=== PATIENT | female | born 1955 | race Caucasian/White ===

== ENCOUNTER 2016-07-29 14:43 | Outpatient (CLI) | payer BC | END 2016-07-29 14:44 | disposition home or self-care (01) | DX: R05 Cough (principal) ==

== ENCOUNTER 2016-11-09 07:33 | Outpatient (CLI) | payer BC ==
[2016-11-09 10:49] LABS: BASOPHILS # (AUTO) 0.1 10^3/uL (0.0-0.1); BASOPHILS % (AUTO) 1.6 %; EOSINOPHILS # (AUTO) 0.3 10^3/uL (0.0-0.7); EOSINOPHILS % (AUTO) 3.3 %; HCT - HEMATOCRIT 39.1 % (37.0-47.0); HGB - HEMOGLOBIN 13.5 g/dL (12.0-16.0); LYMPHOCYTES # (AUTO) 2.4 10^3/uL (1.5-3.5); LYMPHOCYTES % (AUTO) 30.7 %; MEAN CORPUSCULAR HEMOGLOBIN 30.2 pg (27.0-31.0); MEAN CORPUSCULAR HGB CONC 34.6 g/dL (32.0-36.0); MEAN CORPUSCULAR VOLUME 87.1 fL (81.0-99.0); MONOCYTES # (AUTO) 0.5 10^3/uL (0.0-1.0); MONOCYTES % (AUTO) 6.9 %; NEUTROPHILS # (AUTO) 4.4 10^3/uL (1.5-6.6); NEUTROPHILS % (AUTO) 57.5 %; RED BLOOD COUNT 4.49 10^6/uL (4.20-5.40); RED CELL DISTRIBUTION WIDTH 14.8 % (12.0-15.0); UNCORRECTED WHITE BLOOD COUNT 7.7 x10^3/uL; WHITE BLOOD COUNT 7.7 x10^3/uL (4.8-10.8)
[2016-11-09 11:10] LABS: ALBUMIN/GLOBULIN RATIO 1.4 (1.0-2.2); BILIRUBIN,TOTAL 0.7 mg/dL (0.2-1.0); BUN - BLOOD UREA NITROGEN 17 mg/dL (6-20); CALCIUM 9.1 mg/dL (8.5-10.3); CARBON DIOXIDE - CO2 29 mmol/L (21-32); CHLORIDE 103 mmol/L (101-111); CHOL/HDL RATIO 3.7 (<4.4); CHOLESTEROL 183 mg/dL; CREATININE 0.9 mg/dL (0.4-1.0); GFR - MDRD 64 (>89); GLUCOSE 97 mg/dL (70-100); HDL CHOLESTEROL 49 mg/dL; LDL/HDL RATIO 2.3 (<4.4); SODIUM 139 mmol/L (135-145); TOTAL PROTEIN 7.1 g/dL (6.7-8.2); TRIGLYCERIDES 113 mg/dL; VLDL CHOLESTEROL 23 mg/dL
[2016-11-10 08:03] LABS: TEST RESULT REPORT (())
== END 2016-11-09 07:34 | disposition home or self-care (01) ==
LOC: LAB.F 07:33
PROVIDERS: ATTEND Physician Assistant Medical
DX: Z00.00 Encounter for general adult medical examination without abnormal findings (principal); E55.9 Vitamin D deficiency, unspecified; E78.2 Mixed hyperlipidemia; Z79.899 Other long term (current) drug therapy
CPT/HCPCS: 36415; 80053; 80061; 81599; 82306; 84443; 85025

== ENCOUNTER 2016-11-25 10:06 | Outpatient (CLI) | payer BC ==
--- NOTE | 2016-11-26 14:21 | Mammography Report ---
DIGITAL SCREENING MAMMOGRAM: 11/25/2016 CLINICAL INDICATION: A 60-year-old with history of late childbearing, history of bilateral reduction, for screening. COMPARISON: 11/2015, 10/2014, 09/2013, 07/2012, 07/2011, 04/2010, 03/2009, 12/2007, 10/2006. TECHNIQUE: Routine CC and MLO projections were obtained of the breasts. Bilateral laterally exaggera armando craniocaudal views. FINDINGS: The breasts demonstrate scattered fibroglandular densities bilaterally. Coarse and punctat e, typically benign calcifications are present. In the left outer central breast, there is a possible developing density. Further evaluation with spot compression views and possible ultrasound is recomm ended. No mammographically suspicious findings are appreciated in the right breast. IMPRESSION: INCOMPLETE EXAMINATION. RECOMMENDATION: ADDITIONAL EVALUATION OF THE LEFT BREAST ABOVE. BIRADS CATEGORY 0-INCOMPLETE. STANDARD QUALIFYING STATEMENTS 1. This examination was reviewed with the aid of Computer-Aided Detection (CAD). 2. A negative or benign imaging report should not delay biopsy if clinically suspicious findings are present. Consider surgical consultation if warranted. More than 5% of cancers are not identified by i maging. 3. Dense breasts may obscure an underlying neoplasm. JOB #: [id number] EXT JOB #:[id number]
== END 2016-11-25 10:07 | disposition home or self-care (01) ==
LOC: DI.S 10:06
PROVIDERS: ATTEND Physician Assistant Medical
DX: Z12.31 Encounter for screening mammogram for malignant neoplasm of breast (principal); R92.8 Other abnormal and inconclusive findings on diagnostic imaging of breast
CPT/HCPCS: 77067

== ENCOUNTER 2016-12-10 10:25 | Outpatient (CLI) | payer BC ==
--- NOTE | 2016-12-10 15:31 | Mammography Report ---
DIGITAL DIAGNOSTIC LEFT MAMMOGRAM: 12/10/2016 CLINICAL INDICATION: Possible nodule on screening. TECHNIQUE: Left true lateral and spot compression views. COMPARISON: 11/25/2016, 11/13/2015, 10/15/2014, 09/11/2013, 07/14/2012, 08/09/2011, 04/15/2010, 04/01, 01/08/2008, 11/09/2006. FINDINGS: The left breast again demonstrates scattered fibroglandular densities. The density in ques tion dissipates evenly on additional compression. No underlying mass lesion or architectural distorti on is identified. IMPRESSION: NEGATIVE EXAMINATION. RECOMMENDATION: ROUTINE ANNUAL SCREENING UNLESS OTHERWISE CLINICALLY INDICATED. BIRADS CATEGORY 2-BENIGN FINDINGS. STANDARD QUALIFYING STATEMENTS 1. This examination was reviewed with the aid of Computer-Aided Detection (CAD). 2. A negative or benign imaging report should not delay biopsy if clinically suspicious findings are present. Consider surgical consultation if warranted. More than 5% of cancers are not identified by i maging. 3. Dense breasts may obscure an underlying neoplasm. JOB #: [id number] EXT JOB #:[id number]
== END 2016-12-10 10:26 | disposition home or self-care (01) ==
LOC: DI 10:25
PROVIDERS: ATTEND Physician Assistant Medical
DX: R92.8 Other abnormal and inconclusive findings on diagnostic imaging of breast (principal)

== ENCOUNTER 2017-03-07 08:49 | Day surgery (SDC) | payer BC ==
[2017-03-07] MEDS ORDERED: LACTATED RINGERS 1,000 ML IV ONE (09:30)
[2017-03-07] MEDS ORDERED: fentaNYL 100 MCG/2 ML VIAL IVP ONE (11:15)
[2017-03-07] MEDS ORDERED: MIDAZOLAM 2 MG/2 ML VIAL IVP ONE (11:15)
[2017-03-07 12:09] VITALS: BP 124/78
== END 2017-03-07 08:50 | disposition home or self-care (01) ==
LOC: SDS 08:49
PROVIDERS: ATTEND Surgery
PROC: 0DJD8ZZ Inspection of Lower Intestinal Tract, Via Natural or Artificial Opening Endoscopic (ICD-10-PCS; principal; 2017-03-07 10:15)
DX: Z12.11 Encounter for screening for malignant neoplasm of colon (principal); K57.30 Diverticulosis of large intestine without perforation or abscess without bleeding; K64.8 Other hemorrhoids; Z79.82 Long term (current) use of aspirin; I10 Essential (primary) hypertension; E66.9 Obesity, unspecified; Z68.36 Body mass index [BMI] 36.0-36.9, adult
CPT/HCPCS: 45378; J7120

== ENCOUNTER 2017-11-25 08:10 | Outpatient (CLI) | payer BC ==
[2017-11-25 11:17] LABS: BASOPHILS # (AUTO) 0.1 10^3/uL (0.0-0.1); BASOPHILS % (AUTO) 1.6 %; EOSINOPHILS # (AUTO) 0.3 10^3/uL (0.0-0.7); EOSINOPHILS % (AUTO) 3.6 %; HGB - HEMOGLOBIN 13.9 g/dL (12.0-16.0); LYMPHOCYTES # (AUTO) 2.3 10^3/uL (1.5-3.5); LYMPHOCYTES % (AUTO) 32.9 %; MEAN CORPUSCULAR HEMOGLOBIN 29.9 pg (27.0-31.0); MEAN CORPUSCULAR HGB CONC 33.7 g/dL (32.0-36.0); MEAN PLATELET VOLUME 8.4 fL (7.9-10.8); MONOCYTES # (AUTO) 0.4 10^3/uL (0.0-1.0); MONOCYTES % (AUTO) 6.2 %; NEUTROPHILS # (AUTO) 3.9 10^3/uL (1.5-6.6); NEUTROPHILS % (AUTO) 55.7 %; PLT - PLATELET COUNT 327 10^3/uL (130-450); RED BLOOD COUNT 4.64 10^6/uL (4.20-5.40); RED CELL DISTRIBUTION WIDTH 15.1 % (12.0-15.0)
[2017-11-25 11:50] LABS: ALBUMIN 3.7 g/dL (3.2-5.5); ALBUMIN/GLOBULIN RATIO 1.1 (1.0-2.2); ALKALINE PHOSPHATASE 67 IU/L (42-121); ALT ALANINE AMINOTRANSFERASE 19 IU/L (10-60); AST ASPARTATE AMINOTRANSFERASE 18 IU/L (10-42); BILIRUBIN,TOTAL 0.9 mg/dL (0.2-1.0); BUN - BLOOD UREA NITROGEN 13 mg/dL (6-20); CALCIUM 8.9 mg/dL (8.5-10.3); CARBON DIOXIDE - CO2 28 mmol/L (21-32); CHLORIDE 102 mmol/L (101-111); CHOL/HDL RATIO 3.3 (<4.4); CHOLESTEROL 163 mg/dL; CREATININE 0.7 mg/dL (0.4-1.0); GFR - MDRD 86 (>89); GLUCOSE 103 mg/dL (70-100); HDL CHOLESTEROL 50 mg/dL; LDL CHOLESTEROL,CALCULATED 86 mg/dL; LDL/HDL RATIO 1.7 (<4.4); SODIUM 137 mmol/L (135-145); VLDL CHOLESTEROL 27 mg/dL
== END 2017-11-25 08:11 | disposition home or self-care (01) ==
LOC: LAB.F 08:10
PROVIDERS: ATTEND Physician Assistant Medical
DX: Z00.00 Encounter for general adult medical examination without abnormal findings (principal)
CPT/HCPCS: 36415; 80053; 80061; 83721; 84443; 85025

== ENCOUNTER 2017-12-19 11:49 | Outpatient (CLI) | payer BC ==
--- NOTE | 2017-12-20 15:34 | Mammography Report ---
Procedure Date: 12/19/2017 Accession Number: [id number] / [id number] Procedure: ALAN - Screening Mammo Dig Bilat CPT Code: FULL RESULT: EXAM: Screening Mammo Dig Bilat DATE: 12/19/2017 12:05 PM CLINICAL HISTORY: 62-year-old with history of late childbearing, history of bilateral reduction for screening TECHNIQUE: Bilateral CC and MLO views were obtained. COMPARISON: 12/10/2016, 11/25/2016, 11/13/2015, 10/15/2014, 09/11/2013, 07/14/2012, 08/09/2011 FINDINGS: The breasts demonstrate scattered fibroglandular densities bilaterally. Punctate, typically benign calcifications are present. No suspicious masses, clustered microcalcifications, or regions of architectural distortion are identified. IMPRESSION: Benign findings RECOMMENDATION: Routine annual screening unless otherwise clinically indicated. BIRADS CATEGORY 2: Benign findings STANDARD QUALIFYING STATEMENTS: 1. This examination was reviewed with the aid of Computer-Aided Detection (CAD). 2. A negative or benign imaging report should not delay biopsy if clinically suspicious findings are present. Consider surgical consultation if warrented. More than 5% of cancers are not identified by imaging. 3. Dense breasts may obscure an underlying neoplasm.
== END 2017-12-19 11:50 | disposition home or self-care (01) ==
LOC: DI 11:49
PROVIDERS: ATTEND Physician Assistant Medical
DX: Z12.31 Encounter for screening mammogram for malignant neoplasm of breast (principal)
CPT/HCPCS: 77067

== ENCOUNTER 2017-12-26 10:24 | Outpatient (CLI) | payer BC ==
--- NOTE | 2017-12-26 14:58 | XRAY Report ---
Procedure Date: 12/26/2017 Accession Number: [id number] / [id number] Procedure: FL - Modified Barium Swallow W/SP CPT Code: FULL RESULT: EXAM: Modified Barium Swallow W/SP DATE: 12/26/2017 11:15 AM CLINICAL HISTORY: DYSPHAGIA COMPARISON: None. TECHNIQUE: Under the direction of speech pathology, patient swallowed various consistencies of barium under lateral fluoroscopic observation of the neck. Fluoroscopic exposure time: 40 seconds and 0 minutes. Number of fluoroscopic still images: 0. Cine fluoroscopy recorded. FINDINGS: Airway Protection: Normal epiglottic motion. Minimal penetration with no episodes of trachea aspiration with all consistencies of barium. Other: None. Please also refer to full report from Speech Pathology. IMPRESSION: No aspiration identified. RADIA
== END 2017-12-26 10:25 | disposition home or self-care (01) ==
LOC: DI 10:24
PROVIDERS: ATTEND Physician Assistant Medical
DX: R13.10 Dysphagia, unspecified (principal)
CPT/HCPCS: 74230

== ENCOUNTER 2018-01-23 09:26 | Outpatient (CLI) | payer BC ==
--- NOTE | 2018-01-23 11:34 | Ultrasound Report ---
Procedure Date: 01/23/2018 Accession Number: [id number] / [id number] Procedure: US - Head or Neck Soft Tissue CPT Code: FULL RESULT: EXAM: THYROID ULTRASOUND EXAM DATE: 01/23/2018 10:25 AM. CLINICAL HISTORY: GLOBUS SENSATION,DYSPHAGIA. COMPARISON: None. TECHNIQUE: Real time sonographic imaging of the thyroid was performed by the loop puller. Multiple human resources representative static images were saved for review. FINDINGS: THYROID GLAND: Right Lobe: 4.3 x 1.7 x 1.5 cm, volume 5.7 cc. Normal background echotexture. Right Lobe Nodules: 1. There is a hypoechoic solid nodule in the lateral aspect of the mid right lobe measuring 0.9 x 0.8 x 0.5 cm. 2. There is a mildly hypoechoic solid nodule in the medial aspect of the mid right lobe measuring 0.6 x 0.5 x 0.5 cm. Left Lobe: 3.7 x 1.4 x 1.2 cm, volume 3.2 cc. Normal background echotexture. Left Lobe Nodules: 1. There is a hypoechoic cystic nodule in the lateral aspect of the left lobe measuring 0.5 x 0.4 x 0.3 cm. 2. There is a hypoechoic predominately solid nodule in the inferior pole of left lobe measuring 0.7 x 0.7 x 0.5 cm. Isthmus: 0.3 cm AP. Isthmic Nodules: There is a hypocholic nodule in the right side of the isthmus measuring 0.4 x 0.4 x 0.2 cm. LYMPH NODES: No adenopathy demonstrated in the central or lateral compartment. OTHER: None. IMPRESSION: 1. The thyroid gland is small in size. 2. Bilateral thyroid nodules do not meet imaging criteria for biopsy recommendation. 3. No cervical lymphadenopathy. Management recommendations are based on 2015 [place] [employer] Management Guidelines for Adult Patients with Thyroid Nodules and Differentiated Thyroid Cancer. RADIA
== END 2018-01-23 09:27 | disposition home or self-care (01) ==
LOC: DI 09:26
PROVIDERS: ATTEND Physician Assistant Medical
DX: E04.1 Nontoxic single thyroid nodule (principal); R13.10 Dysphagia, unspecified; F45.8 Other somatoform disorders
CPT/HCPCS: 76536

== ENCOUNTER 2020-04-14 14:28 | Outpatient (CLI) | payer BC ==
--- NOTE | 2020-04-15 14:37 | Mammography Report ---
BILATERAL DIGITAL SCREENING MAMMOGRAM 3D/2D: 04/14/2020 CLINICAL: Routine screening. Comparison is made to exams dated: 12/19/2017 mammogram, 12/10/2016 mammogram, 11/25/2016 mammogram, 11/12 mammogram, and 10/15/2014 mammogram - [facility]. There are scattered fibrogla ndular elements in both breasts. No significant masses, calcifications, or other findings are seen in either breast. There has been no significant interval change. IMPRESSION: NEGATIVE There is no mammographic evidence of malignancy. A 1 year screening mammogram is recommended. This exam was interpreted at Station ID: [id number]. NOTE: For mammograms, a report in lay terms will be sent to the patient. Approximately 15% of breast malignancies will not be visualized mammographically. In the management of a palpable breast mass, a negative mammogram must not discourage biopsy of a clinically suspicious lesion. Electronically Signed By: Oma amador/herbert:04/14/2020 17:54:44 ACR BI-RADS Category 1: Negative 3341F PARENCHYMAL PATTERN: (A) - The breast(s) demonstrate(s) scattered fibroglandular densities. BI-RADS CATEGORY: (1) - 1 RECOMMENDATION: (ANNUAL) - Recommend routine annual screening mammography. [id number] 1 year screening LATERALITY: (B)
== END 2020-04-14 14:29 | disposition home or self-care (01) ==
LOC: DI 14:28
PROVIDERS: ATTEND Nurse Practitioner Family
DX: Z12.31 Encounter for screening mammogram for malignant neoplasm of breast (principal); Z78.0 Asymptomatic menopausal state
CPT/HCPCS: 77063; 77067

== ENCOUNTER 2020-04-14 14:28 | Outpatient (CLI) | payer BC ==
--- NOTE | 2020-04-14 17:21 | DEXA Report ---
PROCEDURE: Dexa Spine and/or Hip INDICATIONS: MENOPAUSAL TECHNIQUE: Dual energy x-ray absorptiometry (DXA) was performed on a [employer] System. Regions measur ed are the AP Spine, femoral neck, and if needed forearm. COMPARISON: None. FINDINGS: Lumbar Spine: Bone Mineral Density 1.343 g/cm/cm,T score 1.2, normal bone density Left Hip: Bone Mineral Density 1.111 g/cm/cm,T score 0.8, normal bone density Left Femoral Neck: Bone Mineral Density 0.961 g/cm/cm, T score -0.6, normal bone density (T score greater or equal to -1.0: NORMAL) (T score from -1.1 to -2.4: OSTEOPENIA) (T score less than or equal to -2.5 to: OSTEOPOROSIS) Impression: Normal bone density. Patients with diagnosis of osteoporosis or osteopenia should have regular bone mineral density assess ment. For those eligible for Medicare, routine testing is allowed once every 2 years. Testing frequ ency can be increased for patients who have rapidly progressing disease or for those who are receivin g medical therapy to restore bone mass. Reviewed by: Kimmie Jin MD on 04/14/2020 5:20 PM PST Approved by: Kimmie Jin MD on 04/14/2020 5:20 PM PST Station ID: [id number]
== END 2020-04-14 14:29 | disposition home or self-care (01) ==
LOC: DI 14:28
PROVIDERS: ATTEND Nurse Practitioner Family
DX: Z78.0 Asymptomatic menopausal state (principal)
CPT/HCPCS: 77080

== ENCOUNTER 2020-12-02 12:30 | Outpatient (CLI) | payer BC ==
[2020-12-02 15:08] LABS: ALBUMIN 4.3 g/dL (3.2-5.5); ALBUMIN/GLOBULIN RATIO 1.4 (1.0-2.2); ALKALINE PHOSPHATASE 67 IU/L (42-121); ALT ALANINE AMINOTRANSFERASE 23 IU/L (10-60); AST ASPARTATE AMINOTRANSFERASE 20 IU/L (10-42); BILIRUBIN,TOTAL 1.2 mg/dL (0.2-1.0); BUN - BLOOD UREA NITROGEN 14 mg/dL (6-20); CALCIUM 9.2 mg/dL (8.5-10.3); CARBON DIOXIDE - CO2 29 mmol/L (21-32); CHLORIDE 101 mmol/L (101-111); CHOL/HDL RATIO 4.8 (<4.4); CHOLESTEROL 255 mg/dL; CREATININE 0.7 mg/dL (0.4-1.0); GFR - MDRD 85 (>89); GLUCOSE 99 mg/dL (70-100); HDL CHOLESTEROL 53 mg/dL; LDL CHOLESTEROL,CALCULATED 179 mg/dL; LDL/HDL RATIO 3.4 (<4.4); POTASSIUM 3.6 mmol/L (3.5-5.0); SODIUM 138 mmol/L (135-145); TOTAL PROTEIN 7.4 g/dL (6.7-8.2); TRIGLYCERIDES 117 mg/dL; VLDL CHOLESTEROL 23 mg/dL
== END 2020-12-02 12:31 | disposition home or self-care (01) ==
LOC: LAB.S 12:30
PROVIDERS: ATTEND Nurse Practitioner Family
DX: E78.5 Hyperlipidemia, unspecified (principal); E55.9 Vitamin D deficiency, unspecified; Z13.1 Encounter for screening for diabetes mellitus
CPT/HCPCS: 36415; 80053; 80061; 82306; 83721

== ENCOUNTER 2021-01-15 07:43 | Outpatient (CLI) | payer BC ==
--- NOTE | 2021-01-15 09:15 | CARDIAC PROCEDURE NOTE ---
Stress Test Report Service Date: 01/15/21 Service Time: 08:30 Ordering Provider: Aly Dye md Indication for Test: Chest pain Significant Medical History: She is an overweight female who is 65 years old and has a past medical history of hypertension, hyperlipidemia, sedentary lifestyle, but no family history of coronary artery disease, diabetes, or smoking. She presented to her primary care provider with chest pain. It was severe, induced jaw pain, nausea, diaphoresis. She has a long history of dyspepsia and that is been getting worse. Her primary care provider has sent her to us for stress testing. She has not had recurrence of that chest pain since. She has been very physically active over the last couple of weeks since that episode of chest pain. She is moving from [facility] to [facility]. As such she is packing up boxes. Bending over and lifting. Going up and down stairs multiple times a day. None of the previous chest pain has been reproduced by this activity. Cardiac Risk Factors: Hypertension, hyperlipidemia, obesity Type of Stress Test: Exercise Treadmill Test (ETT) Procedure: After informed consent, the patient performed a treadmill exercise study using a Andrew protocol and completed 6 minutes and 12 seconds. She generated 8.5 metabolic equivalents. The test was terminated due to fatigue and shortness of breath. She also has bilateral hip pain that was increasing in its intensity and made it uncomfortable to move forward as well. The heart rate was 62 bpm at baseline. It increased to 145 bpm which was 92% of maximum predicted heart rate. The resting blood pressure was 114/72. It increased to 189/99 with maximum stress and was a hypertensive response. The patient did not develop any of her chest pain symptoms that she had had previously. She was short of breath, mildly tachypneic and complaining of bilateral leg and hip pain. There were no symptoms of nausea, jaw pain. During stress she had a rare PVC and during recovery there is no increase in PVCs. The resting EKG was normal sinus rhythm. She had an RSR pattern in V1. There were no ST segment changes consistent with ongoing ischemia. During stress she did have an upsloping ST depression in the inferior lateral leads that did not meet diagnostic criteria. After 5 minutes of recovery, the ST segment changes did not completely recover. Summary: She had fair exercise tolerance. Exercise duration was adequate. She had a normal hypertensive response. Heart rate recovery was quick. Rare isolated PVCs during stress but none during rest. There were no ST segment changes at 80 ms after J-point and during peak exercises. She did not have chest pain during her stress test that was similar to her previous episode of chest pain. Subtle ST depression with upsloping ST changes on this Andrew protocol stress test that were not diagnostic by criteria. No nuclear imaging requested. In summary, this stress test accuracy is lower in women especially women with her body habitus. She has intermediate risk for coronary artery disease and there were subtle changes in the inferior leads but no con commitment chest pain with this. If further chest pain occurs, nuclear medicine stress testing may be needed.
== END 2021-01-15 07:44 | disposition home or self-care (01) ==
LOC: DI 07:43
PROVIDERS: ATTEND Internal Medicine
DX: R06.09 Other forms of dyspnea (principal); E78.5 Hyperlipidemia, unspecified; I10 Essential (primary) hypertension; R07.9 Chest pain, unspecified; R10.13 Epigastric pain; E66.9 Obesity, unspecified

== ENCOUNTER 2023-08-03 13:56 | Outpatient (CLI) | payer MEDICARE, OTHER ==
--- NOTE | 2023-08-03 16:27 | XRAY Report ---
PROCEDURE: Foot 3+V RT INDICATIONS: RIGHT FOOT PAIN TECHNIQUE: 3 views of the foot were acquired. COMPARISON: None. FINDINGS: Bones: No fractures or dislocations. Normal alignment on nonweightbearing view. Moderate first MTP j oint space narrowing and juxta-articular osteophytosis. No suspicious bony lesions. Soft tissues: No suspicious soft tissue calcifications or masses. Tiny plantar calcaneal enthesoph yte. IMPRESSION: 1.No acute bony abnormality. 2.Moderate first MTP joint osteoarthritis. Reviewed by: Rita Ferris MD on 08/03/2023 4:25 PM PST Approved by: Rita Ferris MD on 08/03/2023 4:25 PM PST Station ID: [id number]
== END 2023-08-03 13:57 | disposition home or self-care (01) ==
LOC: DI 13:56
PROVIDERS: ATTEND Student in an Organized Health Care Education/Training Program
DX: M19.071 Primary osteoarthritis, right ankle and foot (principal)